=== PATIENT | male | born 1975 | race Caucasian/White ===

== ENCOUNTER 2022-04-21 11:51 | Emergency (ER) | payer MEDICAID ==
[~2022-04-21] VITALS: Ht 182.9 cm; Wt 152.3 kg
[2022-04-21 12:28] VITALS: BP 153/89
[2022-04-21] MEDS ORDERED: cephalexin 250mg capsule PO ONE (14:15)
[2022-04-21] MEDS ORDERED: bacitracin 15gm ointment TP ONE (14:15)
[2022-04-21] MEDS ORDERED: TETanus/Pertussis (Acell)/Diphther VAC/PF (Tdap-Adult) 0.5ml syringe IMVAC ONE (14:15)
[2022-04-21] MEDS ORDERED: CEPH250T PO (14:48)
== END 2022-04-21 14:55 | disposition home or self-care (01) ==
LOC: ER 11:51
DX: M79.675 Pain in left toe(s) (principal); I10 Essential (primary) hypertension; E78.00 Pure hypercholesterolemia, unspecified; Z88.2 Allergy status to sulfonamides; Z88.5 Allergy status to narcotic agent; Z88.8 Allergy status to other drugs, medicaments and biological substances; Z72.89 Other problems related to lifestyle; Z90.49 Acquired absence of other specified parts of digestive tract; Z98.890 Other specified postprocedural states
CPT/HCPCS: 73660; 90460; 90471; 90715; 99283

== ENCOUNTER 2024-02-09 17:25 | Emergency (ER) | payer MEDICAID ==
[~2024-02-09] VITALS: Ht 182.9 cm; Wt 128.2 kg
[2024-02-09 20:08] LABS: STREP A SCREEN NEGATIVE (Neg)
[2024-02-09] MEDS: LIDOcaine 1% W/epiNEPHrine 1:100,000 20ml vial IJ ONE (20:55)
[2024-02-09] MEDS ORDERED: iohexol 300mg/ml 100ml inj. ONE (21:12)
[2024-02-09] MEDS: ampicill/sulbac 1.5gm/NS 100ml 100 ML IV STA (21:50)
[2024-02-09] MEDS: HYDROmorphone 1 mg/ml syringe IV STA (21:56)
[2024-02-09 21:57] LABS: BASOPHILS # (AUTO) 0.1 X10'3 (0-0.2); BASOPHILS % (AUTO) 0.5 % (0-1); EOSINOPHILS # (AUTO) 0.1 X10'3 (0-0.9); EOSINOPHILS % (AUTO) 0.8 % (0-6); HEMATOCRIT 38.3 % (42.0-52.0); HEMOGLOBIN 12.8 g/dl (14.0-17.9); LYMPHOCYTES % (AUTO) 16.4 % (21-51); MEAN CORPUSCULAR HEMOGLOBIN 29.6 PG (27.0-31.0); MEAN CORPUSCULAR HGB CONC 33.4 g/dL (33.0-36.5); MEAN CORPUSCULAR VOLUME 88.7 FL (78-98); MEAN PLATELET VOLUME 7.4 FL (7.4-10.4); MONOCYTES % (AUTO) 8.1 % (2-12); NEUTROPHILS # (AUTO) 9.1 X10'3 (1.8-7.7); NEUTROPHILS % (AUTO) 74.2 % (42-75); PLATELET COUNT 306 X10'3 (140-440); RED BLOOD COUNT 4.32 X10'6 (4.70-6.10); RED CELL DISTRIBUTION WIDTH 13.9 % (11.5-14.5); WHITE BLOOD COUNT 12.3 X10'3 (4.5-11.0)
[2024-02-09 22:17] LABS: ALANINE AMINOTRANSFERASE 38 U/L (12-78); ALBUMIN 3.5 G/DL (3.4-5.0); ALKALINE PHOSPHATASE 65 IU/L (46-116); ANION GAP 6 (8-16); ASPARTATE AMINO TRANSFERASE 24 U/L (10-37); BILIRUBIN,TOTAL 0.5 MG/DL (0.1-1.0); BLOOD UREA NITROGEN 18 MG/DL (7-18); CALCIUM 8.2 MG/DL (8.5-10.1); CHLORIDE 105 MMOL/L (99-107); CREATININE 1.06 MG/DL (0.60-1.10); GLUCOSE 90 MG/DL (70-104); POTASSIUM 3.9 MMOL/L (3.5-5.1); SODIUM 139 MMOL/L (135-145); TOTAL CARBON DIOXIDE 28.2 MMOL/L (24-32); eCRCL 92 ML/MIN; eGFR 74 ML/MIN
[2024-02-09] MEDS: dexamethasone sod phosphate 10mg/ml inj IV STA (23:28)
[2024-02-09] MEDS ORDERED: AMOX-580 PO (23:38)
[2024-02-09] MEDS ORDERED: DEC4T PO (23:38)
[2024-02-10] MEDS: VANCOMYCIN 1GM 200ML H20 (PEG) 200 ML IV ONE (00:11)
[2024-02-10] MEDS: ampicill/sulbac 1.5gm/NS 100ml 100 ML IV STA (00:12)
[2024-02-10 01:57] VITALS: BP 147/78; PULSE 83; RESP 18; TEMP 98.1; O2SAT 100
[2024-02-10] MEDS ORDERED: PRED20TA PO (15:58)
== END 2024-02-10 02:20 | disposition home or self-care (01) ==
LOC: ER 17:26
DX: J36 Peritonsillar abscess (principal); E78.00 Pure hypercholesterolemia, unspecified; I10 Essential (primary) hypertension; Z90.49 Acquired absence of other specified parts of digestive tract; Z88.2 Allergy status to sulfonamides; Z88.5 Allergy status to narcotic agent; Z98.890 Other specified postprocedural states; Z72.89 Other problems related to lifestyle
CPT/HCPCS: 36415; 70491; 80053; 83605; 85025; 87081; 87880; 96365; 96366; 96367; 96375; 99285; J0295; J1100; J1171; J3372; Q9967

== ENCOUNTER 2024-03-03 19:15 | Emergency (ER) | payer MEDICAID ==
[~2024-03-03] VITALS: Ht 182.9 cm; Wt 129.6 kg
[~2024-03-03 19:15] MED LIST: DEC4T PO
[2024-03-03 20:19] VITALS: TEMP 98.4
[2024-03-03 20:29] LABS: BILIRUBIN,URINE NEGATIVE (Neg); CLARITY,URINE CLEAR (Clear); COLOR,URINE YELLOW (Yellow); GLUCOSE, URINE NEGATIVE (Neg); KETONES,URINE NEGATIVE (Neg); LEUKOCYTE ESTERASE ,URINE NEGATIVE (Neg); NITRITES, URINE NEGATIVE (Neg); OCCULT BLOOD,URINE NEGATIVE (Neg); PH,URINE 6.5 (4.8-8.0); PROTEIN,URINE NEGATIVE (Neg); UROBILINOGEN,URINE 0.2 E.U/dL (0.2-1.0)
[2024-03-03 20:32] LABS: UA COLLECTION TYPE URINAL
[2024-03-03] MEDS: HYDROcodone/acetaminophen 5mg/325mg tablet PO ONE (20:33)
[2024-03-03] MEDS ORDERED: DOXY150T8 PO (20:58)
[2024-03-03] MEDS ORDERED: HYDR-3965 PO (20:58)
[2024-03-03 21:10] VITALS: BP 134/82; PULSE 90; RESP 16; O2SAT 98
[2024-03-03] MEDS: DOXYCYCLINE 100MG CAPSULE PO STA (21:27)
== END 2024-03-03 21:29 | disposition home or self-care (01) ==
LOC: ER 19:16
DX: N50.811 Right testicular pain (principal); I10 Essential (primary) hypertension; E78.00 Pure hypercholesterolemia, unspecified; Z88.2 Allergy status to sulfonamides; Z88.5 Allergy status to narcotic agent; Z88.1 Allergy status to other antibiotic agents; Z90.49 Acquired absence of other specified parts of digestive tract; Z98.890 Other specified postprocedural states
CPT/HCPCS: 76870; 81003; 93976; 99284